=== PATIENT | female | born 1995 | race Caucasian/White ===

== ENCOUNTER 2022-12-29 16:01 | Inpatient (IN) | payer MEDICARE, MEDICAID, SELFPAY ==
[2022-12-29] VITALS (16 sets, daily range): BP systolic 118–163; BP diastolic 76–94; PULSE 96–144; RESP 14–20; TEMP 36.8–37.1; O2SAT 96–100
--- NOTE | 2022-12-29 16:13 | XRR_ITS ---
PROCEDURE INFORMATION: Exam: XR Right Ankle Exam date and time: 12/29/2022 4:24 PM Age: 27 years old Clinical indication: Injury or trauma; Fall; Blunt trauma; Ankle; Right; Additional info: Trauma, deformity TECHNIQUE: Imaging protocol: Radiologic exam of the Right ankle. Views: 3 or more views. COMPARISON: No relevant prior studies available. FINDINGS: Bones/joints: There is a spiral shaped fracture of the distal tibial shaft extending for 5 cm in length with 1 cm distraction and 1.5 cm lateral displacement of the distal fracture component. There is a mildly comminuted obliquely oriented fracture of the distal fibular shaft with 1 cm overriding and lateral displacement of the distal fracture component. Soft tissues: Unremarkable. XR/XR ankle RT min 3V* [id number] IMPRESSION: Acute displaced fractures distal shaft right tibia and fibula as discussed above.
--- NOTE | 2022-12-29 16:13 | W.ED.EXTPRO ---
Documented by User: NATHANAEL Garcia 12/31/22 07:05 HPI - Extremity Problem General: Chief complaint: Extremity Injury, Lower Stated complaint: RIGHT ANKLE PAIN Time Seen by Provider: 12/29/22 16:02 Source: patient and EMS Mode of arrival: EMS Limitations: no limitations History of Present Illness: Patient is a 27-year-old female presents to ED today via EMS for evaluation of a right ankle injury. Patient states she was skating when she twisted the right ankle and heard a pop/crunch . She states she cannot bear weight on the ankle secondary to pain. She was given fentanyl in route by EMS. She arrives to the ED with obvious deformity to the right ankle. MD Complaint: joint swelling and joint pain Onset (ago): hour(s) Pain Consistency: constant Location: right and lower extremity Severity scale (1-10): 10 Radiation: none Relieving factors: immobilization Exacerbating factors: range of motion and palpation Associated symptoms: Reports no associated symptoms Review of Systems Musc: Reports: joint pain (R ankle) and joint swelling (R ankle) Neuro: Denies: numbness in extremities or sensory changes PFSH ED PFSH: Surgical History No pertinent past surgical history Social History Smoking and tobacco status: never smoked Physical Exam Const: COMMON NORMALS: no acute distress, no limitations, alert and well nourished GENERAL APPEARANCE: cooperative OTHER: appears to have some mild baseline cognitive impairment HENMT: COMMON NORMALS: normocephalic and atraumatic HEAD & SCALP: normal to inspection, normocephalic and atraumatic Resp: COMMON NORMALS: normal respiratory effort Extremity: GENERAL: Yes normal exam except as noted RIGHT LOWER EXTREMITY: Yes lower leg and Yes foot & digits OTHER: obvious deformity to R lower leg/ankle with swelling and ecchymosis noted; distal pulses palpated, cap refill normal, sensory intact Neuro: COMMON NORMALS: moves all extremities, no focal motor deficits and no sensory deficits noted SENSORIUM/ORIENTATION: Yes alert Skin: NARRATIVE SKIN EXAM: ecchymosis to R lower leg/ankle TRAUMA: no lacerations or abrasions Course Consultations: Consultation #1: Dr. Mason-recommends attempted reduction/better alignment here, splinting, admit to him, orders for ice/elevation/pain/nausea meds, plan for OR tomorrow (will do external fixator if swelling is too much) Vital Signs: Vital signs: Vital Signs Temperature 98.0 F 12/31/22 12:17 Pulse Rate 120 H 12/31/22 12:17 Respiratory Rate 18 12/31/22 12:17 Blood Pressure 150/92 12/31/22 12:17 Pulse Oximetry 99 12/31/22 12:17 Oxygen Delivery Me thod 12/31/22 11:45 Oxygen Flow Rate 8 12/30/22 09:50 MDM - Extremity (Nontraumatic) Medical Decision Making Care will be transferred to Dr. Hudson will perform conscious sedation/reduction and admission. Lab Data 12/29/22 20:24 12/29/22 20:24 Radiology Impressions Ankle X-Ray 12/29/22 17:27 IMPRESSION: Post reduction views demonstrates improved anatomic alignment regarding fractures of the distal tibia and fibula. Tibia/Fibula X-Ray 12/30/22 00:00 IMPRESSION: Intraoperative imaging during ORIF distal tibial fracture. Discharge Plan Discharge Patient Disposition: Admitted As Inpatient Admit Provider: Ej Mason Clinical Impression: Fracture of tibia and fibula, shaft Condition: Stable Discharge Diet: Advance as tolerated Discharge Activity: Use walker/crutches as instructed Sign Out Sign Out Data: Patient Sign Out occurred on 12/29/22 at 17:14. Patient's care was discussed, and care was transferred from to Jaspreet Hudson MD. Coding Level of Care Code ED Rehabilitation Services Counselor for Chg Fwd Documented by User: Jaspreet Hudson MD 01/08/23 02:44 HPI - Extremity Problem General: Chief complaint: Extremity Injury, Lower Stated complaint: RIGHT ANKLE PAIN Time Seen by Provider: 12/29/22 16:02 PFSH ED PFSH: Surgical History No pertinent past surgical history Social History Smoking and tobacco status: never smoked Procedures Orthopedic Fracture Reduction Fracture #1: Time Out Performed: Yes Side: right Fracture Reduction Location: tibia and fibula Analgesia: procedural sedation Technique: direct manipulation and traction/counter-traction Post Reduction X-rays Demonstrate: acceptable reduction Post-reduction neuro exam: intact and no change Post-reduction vascular exam: intact and no change Splint Applied: Yes Patient Tolerated Procedure: well and no complications Procedural Sedation ASA Class: I Time of Last PO Intake: 13:00 Preparation: foreclosure field inspector applied, pulse oximeter, supplemental O2 applied, suction/airway equipment at bedside and IV secured Fentanyl: IV Fentanyl dose (mcg): 50 Midazolam: IV Midazolam dose (mg): 2 IV Propofol dose (mg): 170 Patient Tolerated Procedure: well and no complications Complications: none Course Vital Signs: Vital signs: Vital Signs Temperature 98.0 F 12/31/22 12:17 Pulse Rate 120 H 12/31/22 12:17 Respiratory Rate 18 12/31/22 12:17 Blood Pressure 150/92 12/31/22 12:17 Pulse Oximetry 99 12/31/22 12:17 Oxygen Delivery Me thod 12/31/22 11:45 Oxygen Flow Rate 8 12/30/22 09:50 MDM - Extremity (Nontraumatic) Medical Decision Making Care will be transferred to Dr. Hudson will perform conscious sedation/reduction and admission. 27 old female presenting to the emerged department for ankle injury. Discussed this case with NATHANAEL Garcia. Patient requires operative management and orthopedic service contacted. Prior to management plan for tomorrow patient requires close reduction and splinting. I consented the patient and guardian for procedure. Procedure performed without complication. I interpreted labs, imaging, and agree with documentation. The results of ED evaluation were discussed with the patient including plan for admission due to requirement for level of care not available if discharged to prevent significant worsening/deterioration. Patient agreeable with plan. Jaspreet Hudson MD Emergency Medicine Lab Data 12/29/22 20:24 12/29/22 20:24 Radiology Impressions Ankle X-Ray 12/29/22 17:27 IMPRESSION: Post reduction views demonstrates improved anatomic alignment regarding fractures of the distal tibia and fibula. Tibia/Fibula X-Ray 12/30/22 00:00 IMPRESSION: Intraoperative imaging during ORIF distal tibial fracture. Discharge Plan Discharge Patient Disposition: Admitted As Inpatient Admit Provider: Ej Mason Clinical Impression: Fracture of tibia and fibula, shaft Condition: Stable Discharge Diet: Advance as tolerated Discharge Activity: Use walker/crutches as instructed Sign Out Sign Out Data: Patient Sign Out occurred on 12/29/22 at 17:14. Patient's care was discussed, and care was transferred from to Jaspreet Hudson MD. Coding Level of Care Code ED Rehabilitation Services Counselor for Ashley Trejo
[2022-12-29] MEDS: morphine 4 mg/mL SDV 1 mL IVP ×5 (16:21→22:32)
[2022-12-29] MEDS: fentaNYL 50 mcg/mL INJ 2mL IVP (17:26)
[2022-12-29] MEDS: ondansetron 2 mg/ML SDV 2 mL 4 MG IVP ×3 (17:26→23:41)
--- NOTE | 2022-12-29 17:27 | XRR_ITS ---
PROCEDURE INFORMATION: Exam: XR Right Ankle Exam date and time: 12/29/2022 5:43 PM Age: 27 years old Clinical indication: Pain; Ankle; Right; Additional info: Reduction/splinting TECHNIQUE: Imaging protocol: Radiologic exam of the Right ankle. Views: 1 or 2 views. COMPARISON: CR (LOW EXM, ) 12/29/2022 4:24 PM FINDINGS: Bones/joints: There is again demonstrated a spiral shaped fracture of the distal tibia shaft and a mildly comminuted obliquely oriented fracture of the distal fibular shaft. Anatomic alignment is significantly improved with proximally 0.5 cm malalignment remaining at the fracture sites. Remaining osseous structures are intact. Soft tissues: Unremarkable. XR/XR ankle RT 2V [id number] IMPRESSION: Post reduction views demonstrates improved anatomic alignment regarding fractures of the distal tibia and fibula.
[2022-12-29] MEDS: midazolam 1 mg/mL INJ 2 mL 2 MG IVP (17:50)
[2022-12-29] MEDS: propofol 10 mg/mL SDV 20 mL IVP (17:54)
[2022-12-29] MEDS: sodium chloride 0.9% 1,000 ML 75 ML IV (19:27)
--- NOTE | 2022-12-29 20:16 | PM.HP ---
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 Family is present if she was examined in room 259 bed 1. Patient appears comfortable and communicates clearly. No apparent distress. She was rollerskating when she fell sustained injury to her right leg she was transported via EMS to the emergency room where she underwent closed reduction and splinting. She was admitted for more definitive care orthopedics was notified of her condition. She and the family deny any neck or back pain denies any loss of consciousness. Denies any hip pain. Denies any shoulder or wrist pain. Overall patient is healthy takes the Depo-Provera shot for contraception. Pain is localized to the right leg that is sharp stabbing any movement makes it much worse. Ranks it as 6 out of 10 on the pain scale. An extensive review of the patient's past medical history, surgical history, allergies, medications, family history, social history, and review of systems was completed Review of Systems Musc: Reports: joint pain (R ankle) and joint swelling (R ankle) Neuro: Denies: numbness in extremities or sensory changes Medications/Allergies Home Medications Medication Instructions Recorded Confirmed Last Taken Type cetirizine 10 mg disintegrating 10 mg PO DAILY 04/11/20 12/06/22 Unknown History tablet (Children's Zyrtec Allergy) medroxyprogesterone 150 mg/mL IM .EVERY 3 MONTHS 04/11/20 12/06/22 Unknown History intramuscular suspension (Depo-Provera) mupirocin 2 % topical ointment 1 applic topical BID #22 grams 01/26/22 12/06/22 Unknown Rx triamcinolone acetonide 0.1 % 1 applic topical BID #453.6 grams 01/26/22 12/06/22 Unknown Rx topical cream ciclopirox 0.77 % topical cream 1 applic topical BID #90 grams 02/05/22 12/06/22 Unknown Rx clarithromycin 250 mg/5 mL oral 1,000 mg (20 mL) PO ONCE #50 mL 10/03/22 12/06/22 Unknown Rx suspension clindamycin phosphate 1 % topical 1 applic topical BID #60 grams 10/03/22 12/06/22 Unknown Rx gel Allergies Allergy/AdvReac Type Severity Reaction Status Date / Time No Known Allergies Allergy Verified 12/06/22 15:32 PFSH Acute PFSH: Surgical History No pertinent past surgical history Social History Smoking and tobacco status: never smoked Vitals/I&O/Wt Last Vital Signs Temp 98.2 F 12/29/22 16:03 Pulse 114 H 12/29/22 17:55 Resp 18 12/29/22 19:46 BP 118/83 12/29/22 17:55 Pulse Ox 100 12/29/22 17:55 O2 Del Method 12/29/22 17:55 O2 Flow Rate 2 12/29/22 17:55 Weight last 48 hrs Weight 128 lb 14.4 oz Physical Exam Narrative: Patient is alert and oriented family is present. Splint on the right lower extremity she is able to wiggle her toes with good cap refill all digits. Ice is present on the splint as well no palpable pain in the knees or hips. Negative logroll bilaterally. No palpable pain in the lumbar thoracic or cervical spine. Full range of motion of both upper extremities at the shoulders elbows and wrists hands warm good cap refill. Radial pulses are palpable. HENMT: COMMON NORMALS: normocephalic and atraumatic Resp: COMMON NORMALS: normal respiratory effort Cardio: COMMON NORMALS: regular rate and regular rhythm GI: COMMON NORMALS: Soft to palpation and non-tender : COMMON NORMALS: Yes no CVA tenderness Psych: COMMON NORMALS: mental status grossly normal and cooperative Data 12/29/22 20:24 12/29/22 20:24 Xray Ortho: Radiologist's impression: XR/XR ankle RT 2V [id number] IMPRESSION: Post reduction views demonstrates improved anatomic alignment regarding fractures of the distal tibia and fibula. A&P Assessment and plan (1) Fracture of tibia and fibula, shaft: Discussed with the family at length intramedullary nailing of the right tibia versus if the tissues are too swollen application of an external fixation device. We will obtain labs this evening keep her n.p.o. after midnight proceed with the operating room in the morning. Continue to ice and elevate right lower extremity. All questions were answered. Discussed this with Dr. Mason agrees with above-stated plan. Attestations Medical Necessity Statement*: Operative fixation right lower extremity Coding Level of Care Code Acute Code for g Fwd Diagnoses Fracture of tibia and fibula, shaft S82.209A; S82.409A
[2022-12-29 20:31] LABS: Basophils # 0.1 10^3/uL (0.0-0.1); Basophils % 0.3 %; Hematocrit 33.5 % (37.0-47.0); Hemoglobin 9.4 g/dL (11.5-15.3); Lymphocytes # 1.8 10^3/uL (0.8-4.8); Lymphocytes % 7.4 %; Mean Corpuscular HGB Conc 28.1 g/dL (30.0-36.0); Mean Corpuscular Hemoglobin 20.8 pg (28.0-34.0); Mean Platelet Volume 10.6 fL (7.4-10.4); Monocytes # 1.1 10^3/uL (0.2-0.9); Monocytes % 4.3 %; Neutrophils # 21.75 10^3/uL (1.8-7.7); Neutrophils % 87.4 %; Nucleated Red Blood Cells % 0 %; Platelet Count 319 10^3/cmm (130-400); Red Blood Count 4.53 10^6/uL (4.1-5.3); Red Cell Distribution Width 15.7 % (12.1-15.1); White Blood Count 24.9 10^3/uL (4.0-10.0)
[2022-12-29 20:49] LABS: Blood Urea Nitrogen 5 mg/dL (6-20); Calcium 8.5 mg/dL (8.5-10.5); Carbon Dioxide 18 mmol/L (22-29); Chloride 111 mmol/L (98-107); Glomerular Filtration Rate 98.9 mL/min (90-130); Glucose 98 mg/dL (65-115); Osmolality Calculated 291 mOsm/kg (285-295); Sodium 142 mmol/L (136-145)
[2022-12-29 21:08] LABS: INR 1.07 (0.8-1.2)
[2022-12-29 21:13] LABS: Anion Gap 16.3 (5-19); Potassium 3.3 mmol/L (3.5-5.1)
[2022-12-29 23:36] LABS: OR HCG Qualitative Urine Negative (Negative)
[2022-12-29] MEDS: ketorolac 30 mg/mL INJ 15 MG IVP (23:40)
[2022-12-30] VITALS (30 sets, daily range): BP systolic 109–154; BP diastolic 70–104; PULSE 88–127; RESP 14–20; TEMP 36.1–37.3; O2SAT 88–100
--- NOTE | 2022-12-30 | XR_ITS ---
WS: [id number] C-ARM RADIOGRAPHS RIGHT TIB-FIB; 7 IMAGES HISTORY: TIBIAL NAIL, ORIF COMPARISON: RIGHT ankle 12/29/2022 Intraoperative imaging during intramedullary rodding and distal locking screw placement of a spiral f racture in the distal tibia. Minimally displaced oblique fracture fibular diaphysis. XR/XR tibia fibula RT 2V [id number] IMPRESSION: Intraoperative imaging during ORIF distal tibial fracture.
[2022-12-30] MEDS: morphine 4 mg/mL SDV 1 mL IVP ×10 (00:30→21:51)
[2022-12-30] MEDS: ondansetron 2 mg/ML SDV 2 mL 4 MG IVP ×2 (05:12→21:52)
--- NOTE | 2022-12-30 07:28 | PC.NURSE ---
0727 patient to pre op for surgery
--- NOTE | 2022-12-30 07:32 | W.PM.OPSUD ---
Surgery/Procedure H&P Update DATE OF PROCEDURE: December 30, 2022 DATE H&P PERFORMED: 12/30/22 H&P UPDATE INFORMATION: I have reviewed H&P completed within last 30 days, I have examined patient prior to procedure and No changes to prior documentation PREOP DIAGNOSIS: Right tibial shaft and fibula fracture PLANNED PROCEDURE: Operation Date: 12/30/22 08:30 Proposed Procedures p IM Tibial Nail Insertion vs external fixator(Right) - Ej Mason DO
--- NOTE | 2022-12-30 07:46 | PC.PHAR ---
unable to verify medications with pt-medications entered are what ext med history shows has been filled recently and what was on previous entered med list-last fill dates are made in the pharmacy comments
[2022-12-30] MEDS: sodium chloride 0.9% 1,000 ML 30 ML IV (07:50)
[2022-12-30] MEDS: ceFAZolin 2,000 MG in sodium chloride 0.9% (plus) 50 ML 100 MG IV (08:04)
--- NOTE | 2022-12-30 08:43 | P.ANESASSM_ITS ---
Pre-Anesthetic Assessment Height/Weight: Height 1.45 m Weight 58.468 kg Temp Pulse Resp BP Pulse Ox O2 Del Method O2 Flow Rate 97.3 F L 109 H 18 135/75 99 2 12/30/22 07:35 12/30/22 07:35 12/30/22 07:35 12/30/22 07:35 12/30/22 07:35 12/30/22 07:35 12/29/22 17:55 Preop Diagnosis: Right tibial shaft and fibula fracture Operation Date: 12/30/22 08:30 Proposed Procedures p IM Tibial Nail Insertion vs external fixator(Right) - Ej Mason DO Familial anesthetic complications: PONV Was Beta Deborah taken within 24 hours: N/A Was Clonidine taken within 24 hours: N/A Social No alcohol and No tobacco Exam alert, oriented x 3, clear to auscultation bilaterally and regular rate & rhythm Airway Submandibular: within normal limits Cervical ROM: within normal limits Mallampati: Class II Dentition: false Neuropsych Developmental delay Anesthetic Plan ASA status: 2 Anesthesia: General Medications/Allergies Home Medications Medication Instructions Recorded Confirmed Last Taken Type cetirizine 10 mg disintegrating 10 mg PO DAILY PRN Allergy Symptoms 04/11/20 12/29/22 Unknown History tablet (Children's Zyrtec Allergy) medroxyprogesterone 150 mg/mL IM .EVERY 3 MONTHS 04/11/20 12/06/22 12/20/22 History intramuscular suspension (Depo-Provera) clindamycin phosphate 1 % topical 1 applic topical DAILY 12/29/22 12/29/22 0 12/28/22 History gel Allergies Allergy/AdvReac Type Severity Reaction Status Date / Time No Known Allergies Allergy Verified 12/06/22 15:32 Current Medications Generic Name Dose Route Start Last Admin Trade Name Freq PRN Reason Stop Dose Admin Sodium Chloride 1,000 mls @ 75 mls/hr 12/29/22 17:00 12/29/22 19:27 Sodium Chloride 0.9% IV 75 mls/hr .[id number] HAIDER Administration Ketorolac Tromethamine 15 mg 12/29/22 20:07 12/29/22 23:40 Ketorolac 30 Mg/Ml Inj IVP 15 mg Q6H PRN Administration Pain - See dose instructions Morphine Sulfate 4 mg 12/29/22 19:16 12/30/22 07:02 Morphine 4 Mg/Ml Sdv 1 Ml IVP 4 mg Q1H PRN Administration SEVERE PAIN Ondansetron HCl 4 mg 12/29/22 19:16 12/30/22 05:12 Ondansetron 2 Mg/Ml Sdv 2 Ml IVP 4 mg Q6H PRN Administration NAUSEA AND VOMITING PFSH Anesthesia Surgical History No pertinent past surgical history Social History Smoking and tobacco status: never smoked Data Anesthesia 12/29/22 20:24 12/29/22 20:24 Short CBC 12/29/22 Range/Units 20:24 WBC 24.9 H (4.0-10.0) 10^3/uL Hgb 9.4 L (11.5-15.3) g/dL Hct 33.5 L (37.0-47.0) % MCV 74.0 L (81-99) fl Plt Count 319 (130-400) 10^3/cmm Neut % (Auto) 87.4 % Neut # (Auto) 21.75 H (1.8-7.7) 10^3/uL BMP 12/29/22 20:24 Sodium 142 Potassium 3.3 L Chloride 111 H Carbon Dioxide 18 L BUN 5 L Creatinine 0.7 Glucose 98 Calcium 8.5 Coags 12/29/22 20:45 PT 14.20 INR 1.07 Cardiac Studies: No Data to Display
--- NOTE | 2022-12-30 09:50 | PM.OP ---
Operative Report Date of procedure: December 30, 2022 Pre-op diagnosis: Preop Diagnosis Right tibial shaft and fibula fracture Post-op diagnosis: same Post-op findings: IM nail Rigth tibia Surgeon: Ej Mason Business Banking Manager: Johan Pena Business Banking Manager: The certified surgical technician, Johan Pena, PAC was needed for his expertise fracture care. He was important and necessary throughout the procedure to complete in a safe and timely manner. He assisted with patient positioning prepping and draping tissue retraction suctioning of the operative field protection of the critical structures and tissue closure Estimated blood loss (mL): 25 Procedure: IM nail Rigth tibia Patient brought to the operative suite after undergoing anesthesia was placed in the supine position on his usual padded. Patient was prepped and draped also fashion. Skin incision made over the patella incisions made through the quad tendon. The dilators were passed into the knee joint and the starting point was made at the anterior edge of the tibia in the center position. Wire was passed opening reamer was then passed. Then the 10 was brought to the fracture. Traction and slight internal rotation were had and a Hernandez clamp was placed to hold the fracture reduced. The guidewire was passed past the fracture. The length of the nail was measured to be 300 so a 285 mm nail was used. The canal was reamed to 10-1/2 so a 9 mm nail was used. 2 screws were placed proximally and then 2 medial to lateral screws were placed distally and 1 anterior to posterior screw was placed distally. AP lateral fluoroscopy ensured that the hardware and fracture in good position. Wounds were irrigated closed with nylon and Vicryl. Sterile dressings were applied. Patient was placed in a cam boot and transferred to the PACU in stable condition.
--- NOTE | 2022-12-30 12:04 | PC.NURSE ---
1020 Dressing and boot applied in OR: xeroform. 4x4,webrill,abd pad,casandra wrap and boot
--- NOTE | 2022-12-30 12:15 | ANE.PACU2 ---
Inpatient post-anesthesia follow up: Airway intact: Yes Vital signs: Temperature 97 F Pulse Rate 100 Respiratory Rate 14 Blood Pressure 142/94 Pulse Oximetry 94 Oxygen Delivery Me thod Room Air Oxygen Flow Rate 8 Fraction of Inspir ed Oxygen Hydration adequate: Yes Nausea and vomiting: No Pain level: 3 Mental status: Baseline
--- NOTE | 2022-12-30 14:12 | PC.NURSE ---
Addendum entered by Justine Batista RN 12/30/22 14:14: clarified. Original Note: Questioned order to give morphine hourly. Provider gave orders to change from hourly to every 3. Order changed.
[2022-12-30] MEDS: ketorolac 30 mg/mL INJ IVP ×2 (16:11→23:45)
[2022-12-30] MEDS: ceFAZolin 1,000 MG in sodium chloride 0.9% (plus) 50 ML 100 MG IV ×2 (16:11→23:46)
[2022-12-30] MEDS: enoxaparin 30 mg/0.3 mL Syringe SUBCUT (21:39)
[2022-12-31] VITALS (7 sets, daily range): BP systolic 130–150; BP diastolic 82–97; PULSE 103–121; RESP 14–20; TEMP 36.7–37.4; O2SAT 95–99
[2022-12-31] MEDS: morphine 4 mg/mL SDV 1 mL IVP ×2 (02:49→07:53)
--- NOTE | 2022-12-31 06:57 | P.PN_ITS ---
Subjective Subjective: POD 1 Patient resting comfortably. Right lower extremity elevated. Denies any chest pain, shortness of breath. Vitals/I&O/Wt Last Vital Signs Temp 99.3 F 12/31/22 05:22 Pulse 110 H 12/31/22 05:22 Resp 15 12/31/22 05:22 BP 130/82 12/31/22 05:22 Pulse Ox 95 12/31/22 05:22 O2 Del Method 12/31/22 05:22 O2 Flow Rate 8 12/30/22 09:50 12/30/22 12/30/22 12/31/22 14:59 22:59 06:59 Intake Total 2193.75 / 2193.75 890 / 3083.75 770 / 3853.75 Output Total 100 / 100 Balance 2093.75 / 2093.75 890 / 2983.75 770 / 3753.75 Weight last 48 hrs Weight 128 lb 14.4 oz Physical Exam Narrative: Patient is alert oriented x3 he has a good general appearance normal mood normal affect and is here in follow-up after right tibial nail procedure. Patient denies complaints, fevers, chills or drainage from the incisional site. wound appears clean and dry healing nicely. Feet are warm wit h good capillary refill calves are supple and nontender. Pulses are palpable about dorsalis pedis and posterior tibial region. Good motor strength throughout is able to dorsiflex and plantarflex both ankles. Data 12/29/22 20:24 12/29/22 20:24 A&P Assessment and plan (1) Fracture of tibia and fibula, shaft: Physical therapy to work with a walker with weightbearing as tolerated to the right lower extremity in the cam boot. She will need a walker for home. Continue to ice and elevate. Discharge home with elixir pain medication as well as Lovenox for DVT prophylaxis as she is unable to swallow aspirin. We will see her back in the office in 1 week's time for wound check. Continue fixed boot when the patient is up mobilizing. Call if she is having problems. Discharge home today. Attestations Medical Necessity Statement*: Discharge home later today. Coding Level of Care Code Acute Code for [facility] Diagnoses Fracture of tibia and fibula, shaft S82.209A; S82.409A
--- NOTE | 2022-12-31 07:01 | P.DS_ITS ---
Discharge Providers Date of Admission: 12/29/22 18:05 Date of Discharge: December 31, 2022 Attending Provider at Admission: Ej Mason DO Attending Provider at Discharge: Ej Mason DO Diagnoses at Discharge Discharge Diagnosis (1) Fracture of tibia and fibula, shaft: Status: Acute Reason for Visit Reason for Visit: RIGHT ANKLE PAIN Hospital Course Hospital Course fix tibia pain controlled Discharge Data Studies Completed and Pending Completed Studies During Hospitalization Category Date Time Status XR ankle RT 2V [id number] Stat Exams 12/29/22 17:27 Completed XR ankle RT min 3V* [id number] Stat Exams 12/29/22 16:13 Completed Pending at discharge Category Date Time Status C-arm Fluoroscopy [id number] Routine Exams 12/30/22 08:00 Taken Radiology Impressions Ankle X-Ray 12/29/22 17:27 IMPRESSION: Post reduction views demonstrates improved anatomic alignment regarding fractures of the distal tibia and fibula. Laboratory Results WBC 24.9 10^3/uL (4.0-10.0) H 12/29/22 20:24 RBC 4.53 10^6/uL (4.1-5.3) 12/29/22 20:24 Hgb 9.4 g/dL (11.5-15.3) L 12/29/22 20:24 Hct 33.5 % (37.0-47.0) L 12/29/22 20:24 MCV 74.0 fl (81-99) L 12/29/22 20:24 MCH 20.8 pg (28.0-34.0) L 12/29/22 20:24 MCHC 28.1 g/dL (30.0-36.0) L 12/29/22 20:24 RDW 15.7 % (12.1-15.1) H 12/29/22 20:24 Plt Count 319 10^3/cmm (130-400) 12/29/22 20:24 MPV 10.6 fL (7.4-10.4) H 12/29/22 20:24 Neut % (Auto) 87.4 % 12/29/22 20:24 Lymph % (Auto) 7.4 % 12/29/22 20:24 [place] % (Auto) 4.3 % 12/29/22 20:24 Eos % (Auto) 0.0 % 12/29/22 20:24 Baso % (Auto) 0.3 % 12/29/22 20:24 Neut # (Auto) 21.75 10^3/uL (1.8-7.7) H 12/29/22 20:24 Lymph # (Auto) 1.8 10^3/uL (0.8-4.8) 12/29/22 20:24 [place] # (Auto) 1.1 10^3/uL (0.2-0.9) H 12/29/22 20:24 Eos # (Auto) 0.0 10^3/uL (0.0-0.8) 12/29/22 20:24 Baso # (Auto) 0.1 10^3/uL (0.0-0.1) 12/29/22 20:24 Nucleated RBC % (auto) 0 % 12/29/22 20:24 Nucleated RBCs # 0.0 /100WBC 12/29/22 20:24 PT 14.20 SECONDS (12.1-14.9) 12/29/22 20:45 INR 1.07 (0.8-1.2) 12/29/22 20:45 Sodium 142 mmol/L (136-145) 12/29/22 20:24 Potassium 3.3 mmol/L (3.5-5.1) L 12/29/22 20:24 Chloride 111 mmol/L (98-107) H 12/29/22 20:24 Carbon Dioxide 18 mmol/L (22-29) L 12/29/22 20:24 Anion Gap 16.3 (5-19) 12/29/22 20:24 BUN 5 mg/dL (6-20) L 12/29/22 20:24 Creatinine 0.7 mg/dL (0.5-0.9) 12/29/22 20:24 GFR Calculation 98.9 mL/min (90-130) 12/29/22 20:24 Glucose 98 mg/dL (65-115) 12/29/22 20:24 Calculated Osmolality 291 mOsm/kg (285-295) 12/29/22 20:24 Calcium 8.5 mg/dL (8.5-10.5) 12/29/22 20:24 Urine HCG, Qual Negative (Negative) 12/29/22 23:20 Vitals Last Vital Signs Temp 99.3 F 12/31/22 05:22 Pulse 110 H 12/31/22 05:22 Resp 15 12/31/22 05:22 BP 130/82 12/31/22 05:22 Pulse Ox 95 12/31/22 05:22 O2 Del Method 12/31/22 05:22 O2 Flow Rate 8 12/30/22 09:50 Discharge Plan Discharge Patient Disposition: Home Condition: Stable Prescriptions: New Hydrocodone Compound 5-1.5 mg/5 mL syrup 5 ml PO Q6H PRN (Reason: pain) 7 Days Qty: 473 0RF hydrocodone-acetaminophen 7.5-325 mg/15 mL solution 15 ml PO Q6H PRN (Reason: pain) 7 Days Qty: 400 0RF Lovenox 30 mg/0.3 mL syringe 30 mg SUBCUT DAILY 10 Days Qty: 3 0RF Continued Children's Zyrtec Allergy 10 mg tablet,disintegrating 10 mg PO DAILY PRN (Reason: Allergy Symptoms) medroxyprogesterone [Depo-Provera] 150 mg/mL suspension 150 mg IM .EVERY 3 MONTHS clindamycin phosphate 1 % gel See Rx Instructions .ROUTE .COMPLEX Rx Instructions: apply to affected area topically twice a day for 2 weeks and use as needed for flares Discharge Orders: Discharge Order (Routine); Ordered 12/31/22 Ordered By: Johan Pena Discharge Attestations Time Spent in Discharge Care*: less than 30 min Quality Metrics Clinical Quality Measures [ No reported AMI, CVA or VTE this stay] Coding Level of Care Code Acute Code for Chg Fwd Diagnoses Fracture of tibia and fibula, shaft S82.209A; S82.409A
[2022-12-31] MEDS: ceFAZolin 1,000 MG in sodium chloride 0.9% (plus) 50 ML 100 MG IV (07:52)
--- NOTE | 2022-12-31 11:58 | PC.CHAP ---
Pastoral Care Encounter/Spiritual Assessment Type of Contact [] Declined stave jointer visit [] Patient/Family/Request visit [] Outpatient visit [] Follow-up visit [] Physician referral [] Code/Alert [x] Routine visit [] Staff referral [] Actively dying [] Patient sleeping [x] Family support [] [] Out of room [] Palliative care [] [] Receiving care in room [] Pre-surgical visit [] Trauma [] Long length of stay [] ICU visit [] Other: Relational/Emotional Strength [x] Patient feels connected with others/family/visitors/staff [] Distress [] Loneliness/isolation [] Abandonment Spirituality of Patient [x] Person of Jasmyne [x] Attends Mormon of their Jasmyne [x] Believes in Prayer [] Reads Bible or Protestant materials [] There are Spiritual issues to be addressed Health Insurance Agent Interventions [x] Prayer [x] Active listening [x] Non-anxious presence [] Spiritual/emotional support [] Crisis/trauma care [] Spiritual counseling [] Bereavement support [] Provided bereavement packet [] Provided Bible/devotional materials [] Provided toy/stuffed animal, coloring book to patient or family member [] Provided Communion [] Anointing/[place] [] Salvation [x] Completed spiritual assessment [] Other: Impact on Illness or Injury [] Angry [] Fearful [] Anxious [] Often cries [] Exhaustion [] Unable to work [] Unable to attend buddhist [] Unable to walk/stand [] Unable to read [] Unable to drive [] Unable to eat/drink [] Unable to sleep [] Unable to be with family [] Patient intubated [] Other: Summary Time spent with patient 10 min
== END 2022-12-31 12:18 | disposition home or self-care (01) | DRG 494 ==
LOC: ER 18:04 → MEDSURG 18:13
PROVIDERS: Physician Assistant; Admitting Provider Orthopaedic Surgery; Emergency Provider Emergency Medicine; Visit Provider Orthopaedic Surgery
PROC: 0QHG36Z Insertion of Intramedullary Internal Fixation Device into Right Tibia, Percutaneous Approach (ICD-10-PCS; principal; 2022-12-30 08:00)
DX: S82.301A Unspecified fracture of lower end of right tibia, initial encounter for closed fracture (principal); S82.831A Other fracture of upper and lower end of right fibula, initial encounter for closed fracture; W01.0XXA Fall on same level from slipping, tripping and stumbling without subsequent striking against object, initial encounter; Y93.51 Activity, roller skating (inline) and skateboarding
CPT/HCPCS: 27752; 36415; 73590; 73600; 73610; 76000; 80048; 84703; 85025; 85610; 96365; 96372; 96375; 97161; 97165; 97530; 99285; C1713; J0690; J1100; J1200; J1650; J1885; J2250; J2270; J2405; J2704; J3010; J7030

== ENCOUNTER → 2023-01-15 09:13 | Outpatient (BNVA) | payer MEDICARE, MEDICAID, SELFPAY | PROVIDERS: Visit Provider Physician Assistant | DX: S82.209A Unspecified fracture of shaft of unspecified tibia, initial encounter for closed fracture (principal); S82.409A Unspecified fracture of shaft of unspecified fibula, initial encounter for closed fracture; Z98.1 Arthrodesis status; X58.XXXA Exposure to other specified factors, initial encounter | CPT/HCPCS: 73590; 99024 ==

== ENCOUNTER 2023-01-23 06:00 | Outpatient (RCR) | payer MEDICARE, MEDICAID, SELFPAY | END 2023-02-15 23:59 | disposition home or self-care (01) | LOC: SPT 06:00 | PROVIDERS: Visit Provider Physician Assistant | DX: S82.201D Unspecified fracture of shaft of right tibia, subsequent encounter for closed fracture with routine healing (principal); S82.401D Unspecified fracture of shaft of right fibula, subsequent encounter for closed fracture with routine healing; X58.XXXD Exposure to other specified factors, subsequent encounter | CPT/HCPCS: 97110; 97112; 97116; 97162 ==

== ENCOUNTER → 2023-01-31 08:58 | Outpatient (BNVA) | payer MEDICARE, MEDICAID, SELFPAY | PROVIDERS: Visit Provider Physician Assistant | DX: S82.201D Unspecified fracture of shaft of right tibia, subsequent encounter for closed fracture with routine healing (principal); S82.401D Unspecified fracture of shaft of right fibula, subsequent encounter for closed fracture with routine healing; Z98.890 Other specified postprocedural states; X58.XXXD Exposure to other specified factors, subsequent encounter | CPT/HCPCS: 73590; 99024 ==

== ENCOUNTER 2023-02-16 06:00 | Outpatient (RCR) | payer MEDICARE, MEDICAID, SELFPAY | END 2023-03-17 23:59 | disposition home or self-care (01) | LOC: SPT 06:00 | PROVIDERS: Visit Provider Physician Assistant | DX: S82.301D Unspecified fracture of lower end of right tibia, subsequent encounter for closed fracture with routine healing (principal); X58.XXXD Exposure to other specified factors, subsequent encounter; M96.671 Fracture of tibia or fibula following insertion of orthopedic implant, joint prosthesis, or bone plate, right leg | CPT/HCPCS: 97110; 97116; 97530 ==

== ENCOUNTER → 2023-02-28 15:31 | Outpatient (BNVA) | payer MEDICARE, MEDICAID, SELFPAY | PROVIDERS: Visit Provider Physician Assistant | DX: S82.201D Unspecified fracture of shaft of right tibia, subsequent encounter for closed fracture with routine healing (principal); S82.401D Unspecified fracture of shaft of right fibula, subsequent encounter for closed fracture with routine healing; X58.XXXD Exposure to other specified factors, subsequent encounter | CPT/HCPCS: 73590; 99024 ==

== ENCOUNTER 2023-02-28 16:20 | Outpatient (CLI) | payer MEDICARE, MEDICAID, SELFPAY | END 2023-02-28 16:21 | disposition home or self-care (01) | LOC: SPT 16:21 | PROVIDERS: Visit Provider Physician Assistant | DX: Z46.89 Encounter for fitting and adjustment of other specified devices (principal); S82.202D Unspecified fracture of shaft of left tibia, subsequent encounter for closed fracture with routine healing; X58.XXXD Exposure to other specified factors, subsequent encounter | CPT/HCPCS: 97760; L1902 ==

== ENCOUNTER 2023-03-18 06:00 | Outpatient (RCR) | payer MEDICARE, MEDICAID, SELFPAY | END 2023-04-04 23:59 | disposition home or self-care (01) | LOC: SPT 06:00 | PROVIDERS: Visit Provider Physician Assistant | DX: S82.291D Other fracture of shaft of right tibia, subsequent encounter for closed fracture with routine healing (principal); S82.491D Other fracture of shaft of right fibula, subsequent encounter for closed fracture with routine healing; X58.XXXD Exposure to other specified factors, subsequent encounter | CPT/HCPCS: 97110; 97116; 97530 ==

== ENCOUNTER → 2023-04-23 15:17 | Outpatient (BNVA) | payer MEDICARE, MEDICAID, SELFPAY | PROVIDERS: Visit Provider Physician Assistant | DX: S82.201D Unspecified fracture of shaft of right tibia, subsequent encounter for closed fracture with routine healing (principal); X58.XXXD Exposure to other specified factors, subsequent encounter; S82.401D Unspecified fracture of shaft of right fibula, subsequent encounter for closed fracture with routine healing | CPT/HCPCS: 73590; 99213 ==

== ENCOUNTER → 2023-07-16 15:42 | Outpatient (BNVA) | payer MEDICARE, MEDICAID, SELFPAY | PROVIDERS: Visit Provider Nurse Practitioner Family | DX: L21.8 Other seborrheic dermatitis (principal); L71.0 Perioral dermatitis; L81.4 Other melanin hyperpigmentation; D22.5 Melanocytic nevi of trunk; Z71.89 Other specified counseling | CPT/HCPCS: 99214 ==

== ENCOUNTER → 2024-01-16 15:01 | Outpatient (BNVA) | payer MEDICARE, MEDICAID, SELFPAY | PROVIDERS: Visit Provider Nurse Practitioner Family | DX: L21.8 Other seborrheic dermatitis (principal); L81.4 Other melanin hyperpigmentation; N62 Hypertrophy of breast | CPT/HCPCS: 99214 ==

== ENCOUNTER → 2024-02-07 08:25 | Outpatient (BNVA) | payer MEDICARE, MEDICAID, SELFPAY | PROVIDERS: Visit Provider Nurse Practitioner Family | DX: L21.8 Other seborrheic dermatitis (principal); L81.4 Other melanin hyperpigmentation; N62 Hypertrophy of breast | CPT/HCPCS: 99214 ==

== ENCOUNTER → 2024-05-14 14:02 | Outpatient (BNVA) | payer MEDICARE, MEDICAID, SELFPAY | PROVIDERS: Visit Provider Nurse Practitioner Family | DX: L21.8 Other seborrheic dermatitis (principal); L81.4 Other melanin hyperpigmentation; N62 Hypertrophy of breast | CPT/HCPCS: 99214 ==

== ENCOUNTER → 2024-08-26 15:10 | Outpatient (BNVA) | payer MEDICARE, MEDICAID, SELFPAY | PROVIDERS: Visit Provider Nurse Practitioner Family | DX: L21.8 Other seborrheic dermatitis (principal); L81.4 Other melanin hyperpigmentation; L90.5 Scar conditions and fibrosis of skin | CPT/HCPCS: 99213 ==

== ENCOUNTER → 2025-02-24 15:02 | Outpatient (BNVA) | payer MEDICARE, MEDICAID, SELFPAY | PROVIDERS: Visit Provider Nurse Practitioner Family | DX: L21.8 Other seborrheic dermatitis (principal); L29.89 Other pruritus; L90.5 Scar conditions and fibrosis of skin; L81.4 Other melanin hyperpigmentation | CPT/HCPCS: 99213 ==